=== PATIENT | male | born 1955 | race Caucasian/White ===

== ENCOUNTER 2019-03-09 12:42 | Outpatient (CLI) | payer OTHER ==
[2019-03-09] MEDS ORDERED: OMNIPAQUE 350 MG/ML, 100ML BOTTLE ONE (15:00)
== END 2019-03-09 23:59 | disposition home or self-care (01) ==
LOC: RAD 12:42
PROVIDERS: ATTEND Family Medicine
DX: N28.1 Cyst of kidney, acquired (principal); K76.89 Other specified diseases of liver; N40.0 Benign prostatic hyperplasia without lower urinary tract symptoms; R63.4 Abnormal weight loss
CPT/HCPCS: 71260; 74177; Q9967

== ENCOUNTER 2019-03-16 13:58 | Inpatient (IN) | payer OTHER ==
[~2019-03-16] VITALS: Ht 180.3 cm; Wt 75.1 kg
[2019-03-16] MEDS ORDERED: ARMO50TA2 PO (14:41)
[2019-03-16] MEDS ORDERED: LISI1TAB19 PO (14:41)
[2019-03-16] MEDS ORDERED: SIMV20TA3 PO (14:41)
[2019-03-16] MEDS ORDERED: VILA40TA PO (14:41)
--- NOTE | 2019-03-16 14:43 | NUR ---
PT TO ED AFTER PP CALLED FRIEND AND WAS TOLD TO "GET HIM TO THE ER RIGHT NOW." PER FRIEND AT BS, PT'S "KIDNEY LABS ARE ALL MESSED UP." PT STATES HE FEELS MORE CONFUSED THAN NORMAL AND PT'S FRIEND STATES HE SEEMS NORE CONFUSED THAN NORMAL. PT CONNECTED TO ALL MONITORS. PIV ESTABLISHED AND LABS DRAWN. IVFB STARTED AND VSS WITH IVF. NO NEEDS EXPRESSED. CALL LIGHT WITHIN REACH. AWAITING RESULTS.
--- NOTE | 2019-03-16 14:50 | NUR ---
pt unable to provide ua sample at this time. pt requesting help from male staff. WILLIAM Vega notified and will assist with urination.
[2019-03-16] MEDS ORDERED: SODIUM CHLORIDE FLUSH 10ML SYR IVF ONE (15:00)
[2019-03-16] MEDS ORDERED: SODIUM CHLORIDE 0.9% 1,000ML IVBOLUS ONE (15:00)
[2019-03-16 15:01] LABS: BASOPHILS % (AUTO) 0 % (0-1); MD NO
--- NOTE | 2019-03-16 15:08 | NUR ---
ua collected after assistance from [employer] ua collected and sent to lab. vss. ivf infusing. no needs expressed. call light within reach. awaiting results.
[2019-03-16 15:18] LABS: MICROSCOPIC NOT IND
[2019-03-16 15:23] LABS: ALBUMIN 4.3 g/dL (3.4-5.0); ANION GAP 11 mmol/L (5-15); CHLORIDE 99 mmol/L (98-107)
--- NOTE | 2019-03-16 15:26 | NUR ---
chemistry nearly complete and hematology not yet running. lab called. all blood tubes (including lavender tube) sent in same bag by filling station laborer. per lab, "i'll look for it and see what i can do."
[2019-03-16 15:27] LABS: ALANINE AMINOTRANSFERASE 58 U/L (12-78); ALKALINE PHOSPHATASE 71 U/L (45-117); BILIRUBIN,TOTAL 0.9 mg/dL (0.2-1.0); CREATININE 2.61 mg/dL (0.7-1.3); TOTAL PROTEIN 8.6 g/dL (6.4-8.2)
[2019-03-16 15:34] LABS: CULTURE INDICATED? NO
--- NOTE | 2019-03-16 15:38 | NUR ---
pt resting in room. vss. no needs expressed. call light within reach. awaiting results.
[2019-03-16 15:53] LABS: BASOPHILS # (AUTO) 0.04 x10^3/uL (0-0.1); EOSINOPHILS # (AUTO) 0.15 x10^3/uL (0-0.4); EOSINOPHILS % (AUTO) 2 % (1-7); LYMPHOCYTES # (AUTO) 1.83 x10^3/uL (1-3.4); LYMPHOCYTES % (AUTO) 20 % (22-44); MEAN CORPUSCULAR HEMOGLOBIN 31.8 pg (27.5-34.5); MEAN CORPUSCULAR VOLUME 96.5 fL (81-97); MEAN PLATELET VOLUME 9.1 fL (7.4-10.4); MONOCYTES % (AUTO) 7 % (2-9); NEUTROPHILS # (AUTO) 6.32 x10^3/uL (1.8-6.8); NEUTROPHILS % (AUTO) 71 % (42-75); PLATELET COUNT 199 x10^3/uL (130-400); RED BLOOD COUNT 5.32 x10^6/uL (4.38-5.82); RED CELL DISTRIBUTION WIDTH 13.8 % (9.4-14.8)
--- NOTE | 2019-03-16 16:14 | NUR ---
ALL RESULTS ARE BACK AT THIS TIME. CHART UP FOR RECHECK.
--- NOTE | 2019-03-16 16:14 | NUR ---
RECEIVED REPORT FROM SCOOBY MAJANO. ASSUMING CARE AT THIS TIME.
--- NOTE | 2019-03-16 17:15 | NUR ---
MD AT BEDSIDE TO UPDATE PT ON POC.
--- NOTE | 2019-03-16 17:27 | NUR ---
PT RESTING COMFORTABLY ON GURNEY. NADN. FAMILY AT BEDSIDE. AWAITING ADMIT ORDERS.
--- NOTE | 2019-03-16 17:59 | NUR ---
BREAK RN: HOSPITALIST CYNTHIA Bennett NP IN ROOM.
[2019-03-16] MEDS ORDERED: SODIUM CHLORIDE 0.9% 1,000 ML IV ONE (18:11)
[2019-03-16] MEDS ORDERED: ACETAMINOPHEN 325 MG TABLET PO PRN (18:30)
[2019-03-16] MEDS: SODIUM CHLORIDE 0.9% 1,000 ML IV SCH (18:30)
[2019-03-16] MEDS ORDERED: ONDANSETRON ODT 4 MG PO PRN (18:30)
[2019-03-16] MEDS: HEPARIN 5,000 UNITS/ML, 1ML SQ SCH (18:30)
[2019-03-16] MEDS ORDERED: SODIUM CHLORIDE FLUSH 10ML SYR IVF PRN (18:30)
[2019-03-16] MEDS: BISACODYL 10 MG SUPP PR SCH (19:00)
[2019-03-16] MEDS ORDERED: HEPARIN 5,000 UNITS/ML, 1ML ONE (19:05)
[2019-03-16] MEDS ORDERED: BISACODYL 10 MG SUPP ONE (19:05)
--- NOTE | 2019-03-16 19:09 | NUR ---
URINE COLLECTED IN COMPUTER FOR LAB TO USE URINE THAT WAS SENT EARLIER FOR THE UA.
--- NOTE | 2019-03-16 19:29 | NUR ---
REPORT GIVEN TO ELVIA MAJANO.
[2019-03-16 21:14] VITALS: BP 101/70
[2019-03-16] MEDS: SIMVASTATIN 20 MG TABLET PO SCH (21:16)
[2019-03-17] MEDS: SODIUM CHLORIDE 0.9% 1,000 ML IV SCH ×3 (02:19→17:57)
[2019-03-17] MEDS: HEPARIN 5,000 UNITS/ML, 1ML SQ SCH ×3 (02:19→17:57)
[2019-03-17 03:10] VITALS: BP 103/62
[2019-03-17 05:42] LABS: ALANINE AMINOTRANSFERASE 39 U/L (12-78); ALBUMIN 3.3 g/dL (3.4-5.0); ANION GAP 11 mmol/L (5-15); CALCIUM 8.8 mg/dL (8.5-10.1); CHLORIDE 106 mmol/L (98-107); CREATININE 1.49 mg/dL (0.7-1.3)
[2019-03-17 05:44] LABS: ALKALINE PHOSPHATASE 55 U/L (45-117); BILIRUBIN,TOTAL 1.1 mg/dL (0.2-1.0); TOTAL PROTEIN 6.8 g/dL (6.4-8.2)
[2019-03-17 05:58] LABS: BASOPHILS # (AUTO) 0.03 x10^3/uL (0-0.1); BASOPHILS % (AUTO) 0 % (0-1); EOSINOPHILS % (AUTO) 2 % (1-7); LYMPHOCYTES # (AUTO) 1.62 x10^3/uL (1-3.4); LYMPHOCYTES % (AUTO) 24 % (22-44); MD NO; MEAN CORPUSCULAR HEMOGLOBIN 32.4 pg (27.5-34.5); MEAN CORPUSCULAR HGB CONC 33.7 g/dL (33.2-36.2); MEAN CORPUSCULAR VOLUME 96.2 fL (81-97); MEAN PLATELET VOLUME 8.9 fL (7.4-10.4); MONOCYTES # (AUTO) 0.43 x10^3/uL (0.2-0.8); MONOCYTES % (AUTO) 6 % (2-9); NEUTROPHILS # (AUTO) 4.59 x10^3/uL (1.8-6.8); NEUTROPHILS % (AUTO) 68 % (42-75); PLATELET COUNT 154 x10^3/uL (130-400); RED BLOOD COUNT 4.67 x10^6/uL (4.38-5.82); RED CELL DISTRIBUTION WIDTH 13.8 % (9.4-14.8)
[2019-03-17 07:10] VITALS: BP 103/63
[2019-03-17] MEDS: (Vilazodone Hydrochloride** (Viibryd**) 40 MG) PO SCH (09:00)
[2019-03-17] MEDS: SENNA/DOCUSATE TABLET PO SCH (09:09)
[2019-03-17] MEDS: BISACODYL 10 MG SUPP PR SCH (09:09)
[2019-03-17] MEDS: POLYETHYLENE GLYCOL 17 GM PACKET PO SCH (09:09)
[2019-03-17 12:35] LABS: OCCULT BLOOD NEGATIVE (NEGATIVE)
[2019-03-17 14:20] VITALS: BP 105/70
[2019-03-17 19:51] VITALS: BP 111/75
[2019-03-17] MEDS: SIMVASTATIN 20 MG TABLET PO SCH (21:14)
[2019-03-18 00:02] VITALS: BP 123/79
[2019-03-18] MEDS: HEPARIN 5,000 UNITS/ML, 1ML SQ SCH (02:56)
[2019-03-18] MEDS: SODIUM CHLORIDE 0.9% 1,000 ML IV SCH (02:57)
[2019-03-18 05:48] LABS: BASOPHILS # (AUTO) 0.03 x10^3/uL (0-0.1); BASOPHILS % (AUTO) 1 % (0-1); EOSINOPHILS # (AUTO) 0.12 x10^3/uL (0-0.4); EOSINOPHILS % (AUTO) 2 % (1-7); LYMPHOCYTES # (AUTO) 1.71 x10^3/uL (1-3.4); LYMPHOCYTES % (AUTO) 31 % (22-44); MD NO; MEAN CORPUSCULAR HEMOGLOBIN 31.9 pg (27.5-34.5); MEAN CORPUSCULAR HGB CONC 33.1 g/dL (33.2-36.2); MEAN CORPUSCULAR VOLUME 96.4 fL (81-97); MEAN PLATELET VOLUME 8.8 fL (7.4-10.4); MONOCYTES # (AUTO) 0.44 x10^3/uL (0.2-0.8); MONOCYTES % (AUTO) 8 % (2-9); NEUTROPHILS # (AUTO) 3.16 x10^3/uL (1.8-6.8); NEUTROPHILS % (AUTO) 58 % (42-75); PLATELET COUNT 137 x10^3/uL (130-400); RED BLOOD COUNT 4.45 x10^6/uL (4.38-5.82); RED CELL DISTRIBUTION WIDTH 13.7 % (9.4-14.8)
[2019-03-18 05:53] LABS: ANION GAP 7 mmol/L (5-15); CALCIUM 8.8 mg/dL (8.5-10.1); CHLORIDE 110 mmol/L (98-107); CREATININE 1.11 mg/dL (0.7-1.3)
[2019-03-18 08:00] VITALS: BP 98/74
[2019-03-18] MEDS: BISACODYL 10 MG SUPP PR SCH (08:01)
[2019-03-18] MEDS: (Vilazodone Hydrochloride** (Viibryd**) 40 MG) PO SCH (08:01)
[2019-03-18] MEDS: POLYETHYLENE GLYCOL 17 GM PACKET PO SCH (08:01)
[2019-03-18] MEDS: SENNA/DOCUSATE TABLET PO SCH (08:01)
== END 2019-03-18 10:25 | disposition home or self-care (01) | DRG 684 ==
LOC: ED 15:22 → EDIP 18:11 → 3N 20:18
PROVIDERS: ADMIT Family Medicine; ATTEND Family Medicine
DX: N17.0 Acute kidney failure with tubular necrosis (principal); E78.5 Hyperlipidemia, unspecified; E86.0 Dehydration; F31.9 Bipolar disorder, unspecified; I10 Essential (primary) hypertension; K59.00 Constipation, unspecified; Z82.0 Family history of epilepsy and other diseases of the nervous system; Z83.3 Family history of diabetes mellitus; I95.9 Hypotension, unspecified; R63.4 Abnormal weight loss; Z68.23 Body mass index [BMI] 23.0-23.9, adult
CPT/HCPCS: 36415; 71045; 80048; 80053; 81003; 82272; 82378; 82436; 82570; 84133; 84156; 84300; 85025; 93005; 99285; G0378; J1644; J7030